=== PATIENT | female | born 1955 | race Caucasian/White ===

== ENCOUNTER 2017-04-26 16:50 | Inpatient (IN) | payer BC, OTHER ==
[~2017-04-26] VITALS: Ht 165.1 cm; Wt 73.9 kg
--- NOTE | ~2017-04-26 | CNG ---
[facility] [place] [address] CYTO-NONGYN REPORT PROCEDURE Name: SHANIA MCKEON Room #: 461-P ADM IN M.R.#: [id number] Admission: 04/26/17 Date of : 55 Discharge: Report #: [id number] Path Case #: [id number] CYTOPATHOLOGY REPORT COLLECTION DATE: 04/27/2017 RECEIVED DATE: 04/29/2017 SUBMITTING PHYS: Dr. Luis Lewis OTHER PHYS: Dr. Jaren Horne CLINICAL HISTORY: SOA, pneumothorax, metastatic colon cancer SPECIMEN(S) RECEIVED: A.Sputum * * * * * * * * * * * * FINAL DIAGNOSIS: A. Sputum: - No malignant cells identified. Pulmonary macrophages along with squamous epithelial cells as well as acute and chronic inflammatory cells present. PATHOLOGIST: Heather Guzmán M.D. REPORT ELECTRONICALLY SIGNED BY: Heather Guzmán M.D. DATE/TIME: 04/30/2017 14:31 * * * * * * * * * * * * GROSS PATHOLOGY: A. Sputum: The specimen is submitted unfixed, labeled "Shania Mckeon". Received by the Cytology Department is one mL of clear fluid. One ThinPrep slide was prepared. (clt 04.29.2017) JUICE MIXER(S): LIBIA Holm[facility] INITIAL CPT CODE(S): A; 28502 Professional services performed by [facility] at [facility] [address], [place] [address] Technical services performed by [facility] at [address] [place] [address]., [address], [place] [address]. [facility] [address] [place] [address], [facility] [address] [place], [place] [address] [place] [address] [place] [address] CYTO-NONGYN REPORT PROCEDURE Name: SHANIA MCKEON Room #: 461-P ADM IN M.R.#: [id number] Admission: 04/26/17 Date of : 55 Discharge: Report #: [id number] Path Case #: [id number] PHONE: [phone] DIRECTOR: David Limon M.D. * * * END OF REPORT * * *
--- NOTE | ~2017-04-26 | HC ---
[facility] [place] [address] CONSULTATION Name: GRETCHEN ROSAS Room #: 461-P ADM IN M.R.#: [id number] Admission: 04/26/17 Attend Phys: Jaren Doshi MD Discharge: Date of : 55 Report #: [id number] THIS REPORT FOR: //name// CC: Phil Meyer DATE OF SERVICE: 04/27/2017 ATTENDING PHYSICIAN: Dr. Jaren Doshi. CONSULTATION REQUESTED BY: Dr. Lewis. REASON FOR CONSULTATION: Antibiotic management, atelectasis lung. HISTORY OF PRESENT ILLNESS: The patient is a 61-year-old white woman who was recently diagnosed to have metastatic colon cancer for which she has received treatment with 5-FU, leucovorin, and oxaliplatin (FOLFOX). The patient did have a colonoscopy and was found to have nonobstructive transverse colon tumor. The liver biopsy revealed metastatic adenocarcinoma. Here of lately, the patient developed some increasing respiratory embarrassment. She was admitted to [facility] and a CT scan of the chest was negative for pulmonary embolism, but she was found to have extensive atelectasis right lower lung. The CT scan is not available for review yet. At present, she is in no distress. No nausea, no vomiting, no diarrhea. She does have a right-sided Port-A-Cath. PAST MEDICAL HISTORY: Recently diagnosed to have metastatic colon cancer and she is yet to have surgery for this, but has received chemotherapy. She had appendectomy secondary to ruptured appendicitis in the past. Right knee replacement in 2011. Benign breast biopsy. SOCIAL HISTORY: . Two children. Thirty years of cigarette smoking. REVIEW OF SYSTEMS: History of abdominal pain and weight loss and some diarrhea. No significant symptomatology as far as that is concerned now, but she appears to be extremely debilitated. DRUG ALLERGIES: None listed. MEDICATIONS: She is on treatment with guaifenesin ER, pantoprazole, Zosyn 3.37 grams IV every 6 hours, Atrovent and albuterol inhalation treatment, acetylcysteine inhalation, Rocephin 1 gram daily, loperamide p.r.n., albuterol inhalation treatment every 4 hours, enoxaparin 40 mg subQ daily, p.r.n. acetaminophen, nitroglycerin, p.r.n. ondansetron. She has received magnesium and potassium supplementation. [address] [address] CONSULTATION Name: GRETCHEN ROSAS Room #: 461-P [facility] IN [facility].#: [id number] Admission: 04/26/17 Attend Phys: Jaren Doshi MD Discharge: Date of : 55 Report #: [id number] PHYSICAL EXAMINATION: GENERAL: This is a chronically ill-appearing woman presenting the following vital signs. VITAL SIGNS: Temperature 98.6, pulse 65, respirations 16, BP 112/76 on admission, currently 80/51, height 5 feet 5 inches, weight 163 pounds. HEENMT: Head normocephalic, atraumatic. Pupils reactive. Conjunctivae pale. Mouth: of the tongue. There is a possible herpetic lesion on the left lower lip. NECK: Supple, no thyromegaly. CHEST: Revealed right-sided Port-A-Cath. LUNGS: Decreased breath sounds at bases. HEART: S1, S2. No gallop or murmur. ABDOMEN: Soft, no masses or megaly. PELVIC AND RECTAL: Deferred. EXTREMITIES: No clubbing, cyanosis. NEUROLOGIC: Grossly within normal limits. LABORATORY DATA: Sodium 135, potassium on admission 3.3, after potassium replacement this goes up to 3.6, BUN 5, creatinine 0.6. Magnesium 1.4, albumin 1.4 g/dL. Protime 18.6, INR 1.8, aPTT 35.5. WBC 9200, hemoglobin 9.4 g/dL, platelets 186,000. Prealbumin is 6.1 mg/dL. The MRSA screen is pending. There is a fungal serology that is pending. The urinalysis revealed positive nitrite, positive blood. The microscopic exam revealed pyuria, microscopic hematuria and bacteriuria. ABGs revealed pH 7.48, pCO2 of 29, pO2 of 57, bicarbonate 21.3, lactate 3.24. ASSESSMENT: 1. Metastatic colon cancer -- liver metastasis, status post recent chemotherapy. 2. Hypoxemia with metabolic and lactic acidosis. 3. Severe malnutrition. 4. Port-A-Cath. 5. Question herpetic lesion, left lip. 6. Bibasilar pulmonary infiltrates, possible atelectasis. SUGGESTIONS: Recommend while awaiting MRSA screen, we will place the patient on vancomycin. We will try to review CT scan from the referring hospital. We will continue coverage with Zosyn and discontinue Rocephin. Dr. Lewis and Dr. Doshi, thank you for requesting my suggestions in the care of your patient. <ELECTRONICALLY SIGNED> By: Kendall Thomas MD 04/27/17 1133 0800 0857 Kendall Thomas MD /nt
--- NOTE | ~2017-04-26 | CNG ---
[facility] [place] [address] CYTO-NONGYN REPORT PROCEDURE Name: SHANIA MCKEON Room #: 450-P ADM IN M.R.#: [id number] Admission: 04/26/17 Date of : 55 Discharge: Report #: [id number] Path Case #: [id number] CYTOPATHOLOGY REPORT COLLECTION DATE: 04/30/2017 RECEIVED DATE: 04/30/2017 SUBMITTING PHYS: Dr. Luis Lewis OTHER PHYS: Dr. Jaren Doshi CLINICAL HISTORY: Pneumothorax, Metastatic colon cancer. No endobronchial lesions identified during the Procedure. SPECIMEN(S) RECEIVED: A.Bronchoalveolar lavage, NOS B.Bronchial brushings, RML/LLL C.Bronchial brush rinse, NOS * * * * * * * * * * * * FINAL DIAGNOSIS: A. Bronchoalveolar lavage, NOS: - No malignant cells identified. Pulmonary macrophages, bronchial cells, squamous cells and scattered inflammatory cells. B. Lung, RML/ LLL, Bronchial brushings: No malignant cells identified. Reactive bronchial epithelial cells identified along with macrophages and inflammatory cells. C. Lung, Bronchial brush rinse: No malignant cells identified. Reactive bronchial epithelial cells identified along with macrophages and inflammatory cells. COMMENT: Examination shows numerous sheets of reactive ciliated columnar epithelial cells with round nuclear membranes and nuclear crowding. Necrosis, tumor diathesis, mitotic figures and three-dimensional architecture are not identified. Per the procedure report, there is no lesion identified. The cells are favored to be reactive bronchial epithelial cells. History of metastatic colon cancer is noted. [place]: Dr. Nancy Gonzalez. PATHOLOGIST: Heather Guzmán M.D. REPORT ELECTRONICALLY SIGNED BY: Heather Guzmán M.D. DATE/TIME: 05/01/2017 14:11 * * * * * * * * * * * * GROSS PATHOLOGY: A. Bronchoalveolar lavage, NOS: The specimen is submitted unfixed, labeled "Shania Mckeon". Received by the Cytology Department is 10 mL of cloudy fluid. One ThinPrep slide was prepared. B. Bronchial brushings, RML/LLL: The specimen is labeled "[address] [address] CYTO-NONGYN REPORT PROCEDURE Name: SHANIA MCKEON Room #: 450- ADM IN M.R.#: [id number] Admission: 04/26/17 Date of : 55 Discharge: Report #: [id number] Path Case #: [id number] Shania" and consists of two fixed slides. C. Bronchial brush rinse, NOS: The specimen is labeled "Shania Mckeon" and consists of a brush tip in fixative. One ThinPrep slide was prepared. (clt 04.30.2017) SALES REPRESENTATIVE PRINTING(S): LIBIA Cottrell([facility]) INITIAL CPT CODE(S): A; 13984 B; 27263 C; 10275 Professional services performed by [facility] at [address] [place] [address] Technical services performed by [facility] at [address] [place] [address]., [address], [place] [address]. [facility] [address] [place] [address], [address] [place] [address] PHONE: [phone] DIRECTOR: David Limon M.D. * * * END OF REPORT * * *
--- NOTE | ~2017-04-26 | HC ---
[facility] [place] [address] CONSULTATION Name: GRETCHEN ROSAS Room #: 461- ADM IN M.R.#: [id number] Admission: 04/26/17 Attend Phys: Jaren Doshi MD Discharge: Date of : 55 Report #: [id number] THIS REPORT FOR: //name// CC: Phil Doshi DATE OF SERVICE: 04/26/2017 REASON FOR CONSULTATION: Pneumothorax. IMPRESSION: 1. Hypoxic respiratory failure. 2. Tree-in-bud nodules throughout right lung/atelectasis in consolidation. 3. Atelectasis middle lobe and left lower lobe per chart. 4. Metastatic colon carcinoma. 5. Debilitation. 6. Probable chronic obstructive pulmonary disease. 7. History of paroxysmal atrial fibrillation. 8. Anemia, question etiology. PLAN: We will ask ID to see. We will do Zosyn at present. We will send multiple cultures. We will do VEST and IPV in flutter valve, may do a bronchoscopy if unable to clear. We will ask them to send a CT scan, so this can be reviewed. We will follow closely with you. DVT prophylaxis. We will also check venous Dopplers. HISTORY OF PRESENT ILLNESS: A pleasant 61-year-old female transferred from [facility] for possible pneumothorax; however, it appears that she has ____ significant collapse of airways. She was initially admitted 3 months ago per chart for abdominal pain and weight loss and there was found to be a 5 cm colon mass with hepatic mets. Biopsy showed adeno CA. Colonoscopy on February 08 showed near circumferential mass ascending colon, small sessile poly and a second halve circumferential mass transverse colon. She was started on chemotherapy with 5FU, leucovorin, FOLFOX, nausea with this and some diarrhea. CA increased. The patient after a CT scan developed atrial fibrillation and hypokalemia and was admitted to hospital. During her stay, she became more short of breath and increasing O2 requirements and after CT PE protocol was transferred here. She is sleepy at this time, relates quit smoking 3 months ago, feels better since being transferred. PAST MEDICAL HISTORY: ____. PAST SURGICAL HISTORY: Included: 1. Right knee replacement in 2011. 2. Appendectomy. [facility] [address] [place] [address] CONSULTATION Name: GRETCHEN ROSAS Room #: [facility] ADM IN M.R.#: [id number] Admission: 04/26/17 Attend Phys: Jaren Doshi MD Discharge: Date of : 55 Report #: [id number] 3. Breast biopsy. FAMILY HISTORY: Positive for cancer. SOCIAL HISTORY: Positive tobacco, quit smoking 3 months ago. Works at a local [employer] per chart. Negative significant ETOH. REVIEW OF SYSTEMS: As above. PHYSICAL EXAMINATION: VITAL SIGNS: Temperature 97.9, pulse 73, respirations 24, BP 112/76. EYES: Negative icterus. NECK: Negative JVD. Trachea midline. LUNGS: Decreased bilaterally. HEART: Regular. ABDOMEN: Bowel sounds present. Mildly distended. EXTREMITIES: Showed positive edema, no calf tenderness, moved all extremities. LABORATORY DATA: Potassium 3.3, BUN 5, magnesium 1.4, albumin 1.4. INR 1.8. White count 9.3, hemoglobin 8.4, platelets 176. UA showed nitrite positive, bacteria greater than 30. It appears she was on DuoNeb, vancomycin, piperacillin, Lovenox and Protonix there. Stool was essentially negative and ABG on 10 liters showed 7.44, pCO2 30, pO2 57. Her PA pressure was normal, ejection fraction 65%. We will follow closely with you. By: 2311 0022 Luis Lewis MD /nt
--- NOTE | ~2017-04-26 | P ---
[facility] [place] [address] PROCEDURE REPORT Name: GRETCHEN ROSAS Room #: 450-P ADM IN M.R.#: [id number] Admission: 04/26/17 Attend Phys: Jaren Doshi MD Discharge: Date of : 55 Report #: [id number] THIS REPORT FOR: //name// CC: Phil Doshi PROCEDURE: Fiberoptic bronchoscopy. INDICATION: Mucus plugging, atelectasis. FINDINGS: No endobronchial lesions, minimal mucus plugging. MEDICATIONS: Versed 4 and 50 of fentanyl. BLOOD LOSS: None. ____. Pictures were taken. DESCRIPTION OF PROCEDURE: The patient was informed of risks and benefits and consented to the procedure. This includes bleeding and . Procedure was done in landscape laborer. The patient was given 4 mg of Versed, 50 of fentanyl. This was titrated during procedure. The patient tolerated the procedure well. Bronchoscope was placed orally. Vocal cords moved normally. She did a great job protecting her airway. Main elizabeth was sharp. ____ was normal. No significant mucus plugging noted. No endobronchial lesions seen. Wash and brushes were done bilaterally, tolerated well. These will be sent to lab and we will discuss with . By: 0839 1019 Luis Lewis MD /nt
[2017-04-26 20:08] VITALS: BP 112/76
[2017-04-26] MEDS ORDERED: IBUPROFEN 400400 M2 PO (21:21)
[2017-04-26] MEDS ORDERED: ZOFRAN4 MG PO (21:21)
[2017-04-26 21:22] LABS: HEMATOCRIT 25.6 % (37.0-47.0); HEMOGLOBIN 8.4 gm/dL (12.0-15.0); MCH 27.2 pg (26.0-34.0); MCHC 32.9 g/dL (28.0-37.0); MCV 82.7 fL (80.0-100.0); RBC 3.1 mil/uL (4.20-5.00); RDW 24.8 % (10.5-14.5); WBC 9.3 thou/uL (4.0-11.0)
[2017-04-26] MEDS ORDERED: POTASSIUM20 PO (21:22)
[2017-04-26] MEDS ORDERED: COMPAZINE10 MG PO (21:22)
[2017-04-26] MEDS ORDERED: PEPCID20 MG PO (21:23)
[2017-04-26] MEDS ORDERED: TRAZODONE HCL50 MG PO (21:23)
[2017-04-26] MEDS ORDERED: NYSTATIN 1100000 U/M SW&SWALLOW (21:24)
[2017-04-26] MEDS ORDERED: LOPERAMIDE 2 MG2 M1 PO (21:25)
[2017-04-26] MEDS ORDERED: COLACE100 MG PO (21:26)
[2017-04-26 21:32] LABS: URINE BILIRUBIN NEGATIVE (Negative); URINE BLOOD 2+ (Negative); URINE COLOR YELLOW; URINE GLUCOSE-RANDOM* NEGATIVE (Negative); URINE KETONES NEGATIVE (Negative); URINE NITRITE POSITIVE (Negative); URINE PROTEIN (DIPSTICK) TRACE (Negative); URINE UROBILINOGEN 0.2 E.U./dl (0.2-1.0)
[2017-04-26 21:36] LABS: CALCIUM 7.3 mg/dL (8.5-10.1); CREATININE 0.7 mg/dL (0.6-1.0); POTASSIUM 3.3 mmol/L (3.5-5.1)
[2017-04-26 21:38] LABS: APTT 35.5 Seconds (24.5-32.8); INR 1.8; PROTIME 18.6 Seconds (9.3-11.4)
[2017-04-26 21:42] LABS: ALBUMIN 1.4 g/dL (3.4-5.0); TOTAL BILIRUBIN 0.3 mg/dL (<0.1-1.0); TOTAL PROTEIN 4.7 g/dL (6.4-8.2)
[2017-04-26 21:46] LABS: BACTERIA >30 Many /HPF (None Seen); CASTS None Seen /LPF (None Seen); SQUAMOUS None Seen /LPF (0-3); URINE RBC 3-10 Few /HPF (0-2); URINE WBC >25 Many /HPF (0-5)
[2017-04-26 21:47] LABS: CRYSTALS None Seen /LPF (None Seen)
[2017-04-26 23:51] VITALS: BP 100/65
[2017-04-26 23:51] LABS: ABG SAMPLE TYPE ARTERIAL; BE(vivo) -1.4 mmol/L (-2 to +3); HCO3 21.3 mmol/L (22.0-26.0); LACTATE 3.24 mmol/L (0.5-2.0); O2(CT) 12.7 mL/dL (15.0-23.0); O2Hb 90.1 % (92.0-98.0); PCO2 29.1 mmHg (35.0-45.0); PO2 57.6 mmHg (80.0-100.0); STICK SITE R.BRACHIAL; pH 7.483 (7.360-7.450); sO2 92.3 % (92.0-98.0); tCO2 22.2 mmol/L (24.0-30.0)
[2017-04-27 04:57] VITALS: BP 80/52
[2017-04-27 06:44] LABS: HEMATOCRIT 25.8 % (37.0-47.0); HEMOGLOBIN 8.4 gm/dL (12.0-15.0); MCHC 32.7 g/dL (28.0-37.0); MCV 82.6 fL (80.0-100.0); RBC 3.13 mil/uL (4.20-5.00); RDW 24.3 % (10.5-14.5); WBC 9.2 thou/uL (4.0-11.0)
[2017-04-27 06:59] LABS: ALBUMIN 1.3 g/dL (3.4-5.0); CALCIUM 7.4 mg/dL (8.5-10.1); CREATININE 0.6 mg/dL (0.6-1.0); POTASSIUM 3.6 mmol/L (3.5-5.1); TOTAL BILIRUBIN 0.4 mg/dL (<0.1-1.0); TOTAL PROTEIN 4.8 g/dL (6.4-8.2)
[2017-04-27 07:35] VITALS: BP 80/51
[2017-04-27 11:50] VITALS: BP 89/62
[2017-04-27 16:16] VITALS: BP 104/70
[2017-04-27 20:43] VITALS: BP 90/62
[2017-04-28 04:41] VITALS: BP 86/52
[2017-04-28 06:39] LABS: HEMATOCRIT 23.2 % (37.0-47.0); HEMOGLOBIN 7.6 gm/dL (12.0-15.0); MCH 26.9 pg (26.0-34.0); MCHC 32.6 g/dL (28.0-37.0); MCV 82.5 fL (80.0-100.0); RBC 2.82 mil/uL (4.20-5.00); RDW 24.2 % (10.5-14.5); WBC 11.1 thou/uL (4.0-11.0)
[2017-04-28 07:02] LABS: ALBUMIN 1.3 g/dL (3.4-5.0); CALCIUM 7.1 mg/dL (8.5-10.1); CREATININE 0.6 mg/dL (0.6-1.0); POTASSIUM 3.1 mmol/L (3.5-5.1); TOTAL BILIRUBIN 0.4 mg/dL (<0.1-1.0); TOTAL PROTEIN 4.5 g/dL (6.4-8.2)
[2017-04-28 08:06] VITALS: BP 83/55
[2017-04-28 11:20] VITALS: BP 96/68
[2017-04-28 15:40] VITALS: BP 108/74
[2017-04-28 20:30] VITALS: BP 105/72
[2017-04-29 05:01] VITALS: BP 89/62
[2017-04-29 07:26] LABS: HEMOGLOBIN 7.4 gm/dL (12.0-15.0); MCH 26.8 pg (26.0-34.0); MCHC 32.1 g/dL (28.0-37.0); MCV 83.4 fL (80.0-100.0); RBC 2.76 mil/uL (4.20-5.00); RDW 24.1 % (10.5-14.5); WBC 10.6 thou/uL (4.0-11.0)
[2017-04-29 07:38] VITALS: BP 98/65
[2017-04-29 07:41] LABS: ALBUMIN 1.3 g/dL (3.4-5.0); CALCIUM 7.2 mg/dL (8.5-10.1); CREATININE 0.6 mg/dL (0.6-1.0); PHOSPHORUS 2.5 mg/dL (2.5-4.9); POTASSIUM 3.2 mmol/L (3.5-5.1)
[2017-04-29 12:08] VITALS: BP 98/60
[2017-04-29 16:04] VITALS: BP 106/70
[2017-04-29 19:17] VITALS: BP 96/66
[2017-04-30 04:07] VITALS: BP 107/70
[2017-04-30 04:33] LABS: HEMATOCRIT 22.8 % (37.0-47.0); HEMOGLOBIN 7.4 gm/dL (12.0-15.0); MCH 27.3 pg (26.0-34.0); MCHC 32.5 g/dL (28.0-37.0); MCV 83.9 fL (80.0-100.0); RBC 2.72 mil/uL (4.20-5.00); RDW 24.4 % (10.5-14.5); WBC 12.6 thou/uL (4.0-11.0)
[2017-04-30 04:48] LABS: CALCIUM 7.8 mg/dL (8.5-10.1); CREATININE 0.6 mg/dL (0.6-1.0); POTASSIUM 3.8 mmol/L (3.5-5.1)
[2017-04-30 15:11] VITALS: BP 99/67
[2017-04-30 19:12] LABS: BLASTOMYCES-IMMUNODIFF Negative (Neg:<1:1); HISTOPLASMA-IMMUNODIFF Negative (Neg:<1:1)
[2017-04-30 19:14] VITALS: BP 100/71
[2017-05-01 04:34] VITALS: BP 99/68
[2017-05-01 07:20] VITALS: BP 106/69
[2017-05-01 08:16] LABS: % SATURATION 36 % (20-39); IRON 23 ug/dL (50-170); TIBC 64 ug/dL (250-450); UIBC 41 ug/dL
[2017-05-01 12:23] VITALS: BP 97/62
[2017-05-01] MEDS ORDERED: LOPERAMIDE 2 MG2 M1 PO (12:29)
[2017-05-01] MEDS ORDERED: FAMCICLOVIR250 MG PO (12:29)
[2017-05-01] MEDS ORDERED: POTASSIUM20 PO (12:30)
[2017-05-01] MEDS ORDERED: AUGMENTIN 875875 MG PO (12:38)
[2017-05-01 12:50] VITALS: BP 97/62
[2017-05-01 19:08] LABS: ASPERGILLUS FLAVUS-ID Negative (Neg:<1:1); ASPERGILLUS FUMIGATUS-ID Negative (Neg:<1:1); ASPERGILLUS NIGER-ID Negative (Neg:<1:1)
== END 2017-05-01 14:14 | disposition home or self-care (01) | DRG 166 ==
LOC: 4W 16:50
PROVIDERS: Hospitalist; Internal Medicine Hematology & Oncology; Internal Medicine Pulmonary Disease; Nurse Practitioner Family
PROC: 0B9F8ZX Drainage of Right Lower Lung Lobe, Via Natural or Artificial Opening Endoscopic, Diagnostic (ICD-10-PCS; principal; 2017-04-26)
PROC: 0BBF8ZX Excision of Right Lower Lung Lobe, Via Natural or Artificial Opening Endoscopic, Diagnostic (ICD-10-PCS; principal; 2017-04-26)
DX: J96.01 Acute respiratory failure with hypoxia (principal); E43 Unspecified severe protein-calorie malnutrition; J18.9 Pneumonia, unspecified organism; C18.9 Malignant neoplasm of colon, unspecified; C78.7 Secondary malignant neoplasm of liver and intrahepatic bile duct; E87.2 Acidosis; N39.0 Urinary tract infection, site not specified; E87.6 Hypokalemia; R19.7 Diarrhea, unspecified; I48.0 Paroxysmal atrial fibrillation; D64.81 Anemia due to antineoplastic chemotherapy; F17.210 Nicotine dependence, cigarettes, uncomplicated; F32.9 Major depressive disorder, single episode, unspecified; Z96.651 Presence of right artificial knee joint; B00.1 Herpesviral vesicular dermatitis; Z79.01 Long term (current) use of anticoagulants; Z68.27 Body mass index [BMI] 27.0-27.9, adult; Z79.899 Other long term (current) drug therapy; Z82.49 Family history of ischemic heart disease and other diseases of the circulatory system; Z83.3 Family history of diabetes mellitus; Z90.49 Acquired absence of other specified parts of digestive tract
CPT/HCPCS: 10045

== ENCOUNTER 2017-07-02 12:12 | Inpatient (IN) | payer BC, OTHER ==
[~2017-07-02] VITALS: Ht 165.1 cm; Wt 66.7 kg
--- NOTE | ~2017-07-02 | EKG ---
[address] [place] [address] ELECTROCARDIOGRAM REPORT Name: GRETCHEN ROSAS Room #: 356-P ADM IN M.R.#: [id number] Admission: 07/02/17 Attend Phys: Jaren Doshi MD Discharge: Date of : 55 Report #: [id number] THIS REPORT FOR: //name// [facility] Test Date: 2017-07-04 Test Time: 22:28:52 Pat Name: GRETCHEN ROSAS Department: Room: 356 Gender: F Research Laboratory Manager: [email or web address] : 1955 Requested By: Francisca Miller Order Number: [id number] MD: Archie Campos Measurements Intervals [place] Rate: 144 P: NC: QRS: 23 QRSD: 91 T: 209 QT: 265 QTc: 410 Interpretive Statements Atrial fibrillation Ventricular premature complex Repol abnrm suggests ischemia, diffuse leads Compared to ECG 07/02/2017 12:30:31 Ventricular premature complex(es) now present Atrial fibrillation has replaced sinus rhythm ST and T wave abnormality is now present Electronically Signed On 07-05-2017 10:12:12 CDT by Archie Campos [email or web address] <ELECTRONICALLY SIGNED> By: Archie Campos MD, FAC 07/05/17 1012 Archie Campos MD, [facility] /EPI
--- NOTE | ~2017-07-02 | EKG ---
[address] [address] ELECTROCARDIOGRAM REPORT Name: GRETCHEN ROSAS Room #: 356-P ADM IN M.R.#: [id number] Admission: 07/02/17 Attend Phys: Jaren Doshi MD Discharge: Date of : 55 Report #: [id number] THIS REPORT FOR: //name// [facility] Test Date: 2017-07-02 Test Time: 12:30:31 Pat Name: GRETCHEN ROSAS Department: Room: 356 Gender: F Autocad: SANYA : 1955 Requested By: Alfonso Cheatham Order Number: [id number] MD: Rubén Thomas Measurements Intervals [place] Rate: 73 P: 76 OR: 149 QRS: 49 QRSD: 93 T: 29 QT: 383 QTc: 422 Interpretive Statements Sinus rhythm Borderline T wave abnormalities No previous ECG available for comparison Electronically Signed On 07-02-2017 23:07:48 CDT by Rubén Thomas [email or web address] <ELECTRONICALLY SIGNED> By: Rubén Thomas MD 07/02/17 2307 1230 1230 Rubén Thomas MD /SYLVIE
--- NOTE | ~2017-07-02 | EKG ---
[address] [address] ELECTROCARDIOGRAM REPORT Name: GRETCHEN ROSAS Room #: 356- ADM IN M.R.#: [id number] Admission: 07/02/17 Attend Phys: Jaren Doshi MD Discharge: Date of : 55 Report #: [id number] THIS REPORT FOR: //name// [facility] Test Date: 2017-07-05 Test Time: 17:49:34 Pat Name: GRETCHEN ROSAS Department: Room: 356 Gender: F Dehydrogenation Converter Helper: Fortino ANTONIO : 1955 Requested By: Alexandra Payne Order Number: [id number] MD: Rubén Thomas Measurements Intervals [place] Rate: 77 P: 54 VA: 154 QRS: 39 QRSD: 103 T: 62 QT: 447 QTc: 506 Interpretive Statements Sinus rhythm Minimal ST depression, anterolateral leads Prolonged QT interval Compared to ECG 07/04/2017 22:28:52 ST (T wave) deviation now present Prolonged QT interval now present Atrial fibrillation no longer present Ventricular premature complex(es) no longer present Early repolarization no longer present Possible ischemia no longer present Electronically Signed On 07-05-2017 21:52:57 CDT by Rubén Thomas [email or web address] <ELECTRONICALLY SIGNED> By: Rubén Thomas MD 07/05/17 2152 48 48 Rubén Thomas MD /EPI
--- NOTE | ~2017-07-02 | 2DMMODE ---
[facility] [address] [place] [address] 2 D/M-MODE ECHOCARDIOGRAM Name: GRETCHEN ROSAS Room #: 356-P ADM IN ..#: [id number] Admission: 07/02/17 Attend Phys: Jaren Doshi MD Discharge: Date of : 55 Date of Service: 07/03/17 1022 Report #: [id number] THIS REPORT FOR: //name// APPROVED REPORT Study performed: 07/03/2017 08:06:39 EXAM: Comprehensive 2D, Doppler, and color-flow Echocardiogram Patient Location: Echo lab Room #: [facility] Status: routine BSA: 1.74 HR: 97 bpm BP: 114/69 mmHg Other Information Study Quality: AdequateGood Indications Atrial Fibrillation 2D Dimensions RVDd: 21.17 mm LVEF(%): 59.60 (>50%) IVSd: 9.40 (7-11mm) LVOT Diam: 21.05 (18-24mm) LVDd: 46.19 mm PWd: 9.03 (7-11mm) Ascending Ao: 31.62 (22-36mm) LVDs: 31.59 (25-40mm) Aortic Root: 33.34 mm Gonsalez's LVEF: 59.60 % Volumes Left Atrial Volume (Systole) Single Plane 4CH: 26.60 mL Single Plane 2CH: 56.54 mL LA ESV Index: 27.00 mL/m2 Aortic Valve AoV Peak Francisco.: 1.22 m/s AO Peak Gr.: 5.95 mmHg LVOT Max P.51 mmHg LVOT Max V: 0.94 m/s RICO Vmax: 2.67 cm2 Mitral Valve E/A Ratio: 0.7 MV Decel. Time: 229.69 ms MV E Max Francisco.: 0.40 m/s [facility] [address] [place] [address] 2 D/M-MODE [facility]ARDIOGRAM [facility] #: [facility]-P ADM IN M.R.#: [id number] Admission: 07/02/17 Attend Phys: Jaren Doshi MD Discharge: Date of : 55 Date of Service: 07/03/17 1022 Report #: [id number] MV A Francisco.: 0.58 m/s MV PHT: 66.61 ms IVRT: 76.12 ms Pulmonary Valve PV Peak Francisco.: 1.11 m/s PV Peak Gr.: 4.94 mmHg Tricuspid Valve TR Peak Francisco.: 2.82 m/s TR Peak Gr.: 31.87 mmHg PA Pressure: 37.00 mmHg Left Ventricle The left ventricle is normal size. There is normal left ventricular wall thickness. The left ventricular systolic function is normal. LVEF is 55-60%. Grade I - abnormal relaxation pattern. Right Ventricle The right ventricle is normal size. The right ventricular systolic function is normal. Atria The left atrium size is normal. The right atrium size is normal. Aortic Valve The aortic valve is normal in structure. No aortic regurgitation is present. There is no aortic valvular stenosis. Mitral Valve Mild mitral annular calcification. Trace mitral regurgitation. No evidence of mitral valve stenosis. Tricuspid Valve The tricuspid valve is normal in structure. Trace to mild tricuspid regurgitation. Pulmonic Valve The pulmonary valve is normal in structure. Trace pulmonic regurgitation. Great Vessels The aortic root is normal in size. IVC is normal in size and collapses >50% with inspiration. Pericardium [facility] [address] [place] [address] 2 D/M-MODE ECHOCARDIOGRAM Name: GRETCHEN ROSAS Room #: 356-P [facility] IN .R.#: [id number] Admission: 07/02/17 Attend Phys: Jaren Doshi MD Discharge: Date of : 55 Date of Service: 07/03/17 1022 Report #: [id number] There is no pericardial effusion. <Conclusion> The left ventricle is normal size. LVEF is 55-60%. The aortic valve is normal in structure. Mild mitral annular calcification. Trace mitral regurgitation. The tricuspid valve is normal in structure. Trace to mild tricuspid regurgitation. There is no pericardial effusion. <ELECTRONICALLY SIGNED> By: Jerry Rogers MD [id number] 21 21 Jerry Rogers MD /INF
[~2017-07-02 12:12] MED LIST: AUGMENTIN 875875 MG PO; COLACE100 MG PO; COMPAZINE10 MG PO; FAMCICLOVIR250 MG PO; IBUPROFEN 400400 M2 PO; LOPERAMIDE 2 MG2 M1 PO; NYSTATIN 1100000 U/M SW&SWALLOW; PEPCID20 MG PO; POTASSIUM20 PO; TRAZODONE HCL50 MG PO; ZOFRAN4 MG PO
[2017-07-02 12:13] VITALS: BP 121/60
[2017-07-02 12:46] LABS: HEMATOCRIT 27.2 % (37.0-47.0); HEMOGLOBIN 8.6 gm/dL (12.0-15.0); MCH 29.2 pg (26.0-34.0); MCHC 31.8 g/dL (28.0-37.0); MCV 91.9 fL (80.0-100.0); PLATELET COUNT 134 thou/uL (150-400); RBC 2.96 mil/uL (4.20-5.00); RDW 18.6 % (10.5-14.5); WBC 2.2 thou/uL (4.0-11.0)
[2017-07-02 12:48] LABS: MANUAL DIFF YES
[2017-07-02 12:55] LABS: ANION GAP 11 mmol/L (7-16); BUN 11 mg/dL (7-18); CALCIUM 8.5 mg/dL (8.5-10.1); CHLORIDE 97 mmol/L (98-107); CO2 22 mmol/L (21-32); CREATININE 0.8 mg/dL (0.6-1.0); GLUCOSE 140 mg/dL (74-106); POTASSIUM 4.2 mmol/L (3.5-5.1); SODIUM 130 mmol/L (136-145)
[2017-07-02 13:00] LABS: APTT 28.7 Seconds (24.5-32.8); INR 1.6
[2017-07-02 13:03] LABS: TROPONIN-I < 0.04 ng/mL (<0.04-0.07)
[2017-07-02 13:31] LABS: ABSOLUTE NEUTROPHILS 1.3 thou/uL (1.4-8.2); ANISOCYTOSIS 2+; TOTAL CELL COUNT 100
[2017-07-02 13:32] LABS: OVALOCYTES FEW
[2017-07-02 13:53] VITALS: BP 111/73
[2017-07-02 15:18] VITALS: BP 109/79
[2017-07-02 15:52] VITALS: BP 104/61
[2017-07-02 19:33] VITALS: BP 110/70
[2017-07-03 00:05] VITALS: BP 98/74
[2017-07-03 03:56] VITALS: BP 114/69
[2017-07-03 06:45] LABS: HEMATOCRIT 22.5 % (37.0-47.0); HEMOGLOBIN 7.3 gm/dL (12.0-15.0); MCH 29.4 pg (26.0-34.0); MCHC 32.4 g/dL (28.0-37.0); MCV 90.8 fL (80.0-100.0); PLATELET COUNT 112 thou/uL (150-400); RBC 2.47 mil/uL (4.20-5.00); RDW 18.5 % (10.5-14.5)
[2017-07-03 07:01] LABS: MANUAL DIFF YES; WBC 1.7 thou/uL (4.0-11.0)
[2017-07-03 07:03] LABS: ALBUMIN 1.9 g/dL (3.4-5.0); CALCIUM 8.1 mg/dL (8.5-10.1); CREATININE 0.9 mg/dL (0.6-1.0); MAGNESIUM 1.8 mg/dL (1.8-2.4); POTASSIUM 4.2 mmol/L (3.5-5.1); TOTAL BILIRUBIN 0.6 mg/dL (<0.1-1.0); TOTAL PROTEIN 5.4 g/dL (6.4-8.2)
[2017-07-03 09:52] LABS: ABSOLUTE NEUTROPHILS 0.9 thou/uL (1.4-8.2); ANISOCYTOSIS 2+; TOTAL CELL COUNT 50
[2017-07-03 11:41] VITALS: BP 110/66
[2017-07-03 16:19] VITALS: BP 107/79
[2017-07-03 20:00] VITALS: BP 97/65
[2017-07-04] VITALS (8 sets, daily range): BP systolic 90–114; BP diastolic 58–77
[2017-07-04 07:13] LABS: HEMOGLOBIN 7.2 gm/dL (12.0-15.0); MCH 29.8 pg (26.0-34.0); MCHC 32.6 g/dL (28.0-37.0); MCV 91.4 fL (80.0-100.0); RBC 2.41 mil/uL (4.20-5.00); RDW 18.6 % (10.5-14.5); WBC 2.2 thou/uL (4.0-11.0)
[2017-07-04 07:28] LABS: CALCIUM 7.9 mg/dL (8.5-10.1); CREATININE 0.9 mg/dL (0.6-1.0)
[2017-07-04 07:31] LABS: POTASSIUM 3.2 mmol/L (3.5-5.1)
[2017-07-05 04:18] VITALS: BP 90/64
[2017-07-05 07:18] VITALS: BP 86/56
[2017-07-05 08:15] VITALS: BP 88/57
[2017-07-05 11:27] VITALS: BP 99/67
[2017-07-05 15:49] VITALS: BP 94/60
[2017-07-05 19:20] VITALS: BP 108/66
[2017-07-06 04:32] VITALS: BP 106/67
[2017-07-06 04:44] LABS: HEMOGLOBIN 7.3 gm/dL (12.0-15.0); RDW 18.5 % (10.5-14.5)
[2017-07-06 04:46] LABS: HEMATOCRIT 22.1 % (37.0-47.0); MCH 29.8 pg (26.0-34.0); MCHC 33.1 g/dL (28.0-37.0); RBC 2.45 mil/uL (4.20-5.00)
[2017-07-06 04:56] LABS: CALCIUM 7.9 mg/dL (8.5-10.1); CREATININE 0.7 mg/dL (0.6-1.0)
[2017-07-06 04:59] LABS: POTASSIUM 2.5 mmol/L (3.5-5.1)
[2017-07-06 07:15] VITALS: BP 104/74
[2017-07-06] MEDS ORDERED: MS CONTIN15 MG PO (09:21)
[2017-07-06] MEDS ORDERED: MORPHINE SULFAT15 M3 PO (09:21)
[2017-07-06] MEDS ORDERED: PACERONE 200 M200 M1 PO (10:29)
[2017-07-06] MEDS ORDERED: AUGMENTIN 875-1 EACH PO (10:29)
[2017-07-06] MEDS ORDERED: ENOXAPARIN100 MG/11 SUBQ (10:30)
[2017-07-06] MEDS ORDERED: VENTOLIN HFA 1818 GM INH (10:30)
[2017-07-06 11:03] VITALS: BP 104/74
== END 2017-07-06 11:47 | disposition home or self-care (01) | DRG 175 ==
LOC: ER 12:12 → EROBS 13:52 → 3W 13:52
PROVIDERS: Hospitalist; Nurse Practitioner; Physician Assistant
DX: I26.99 Other pulmonary embolism without acute cor pulmonale (principal); I62.03 Nontraumatic chronic subdural hemorrhage; D61.810 Antineoplastic chemotherapy induced pancytopenia; E43 Unspecified severe protein-calorie malnutrition; C18.9 Malignant neoplasm of colon, unspecified; C78.7 Secondary malignant neoplasm of liver and intrahepatic bile duct; R19.7 Diarrhea, unspecified; F32.9 Major depressive disorder, single episode, unspecified; I48.0 Paroxysmal atrial fibrillation; E87.6 Hypokalemia; Z96.651 Presence of right artificial knee joint; Z68.24 Body mass index [BMI] 24.0-24.9, adult; Z90.49 Acquired absence of other specified parts of digestive tract; Z87.891 Personal history of nicotine dependence; Z79.899 Other long term (current) drug therapy; Z83.3 Family history of diabetes mellitus; Z82.49 Family history of ischemic heart disease and other diseases of the circulatory system
CPT/HCPCS: 10779

== ENCOUNTER 2017-09-07 17:13 | Inpatient (IN) | payer BC, OTHER ==
[~2017-09-07] VITALS: Ht 165.1 cm; Wt 62.1 kg
--- NOTE | ~2017-09-07 | HC ---
[facility] [place] [address] CONSULTATION Name: GRETCHEN ROSAS Room #: 406-P [facility] IN M.R.#: [id number] Admission: 09/07/17 Attend Phys: Jose Alaniz DO Discharge: 09/09/17 Date of : 55 Report #: [id number] THIS REPORT FOR: //name// CC: Phil Ozzie Alaniz DATE OF SERVICE: 09/08/2017 REQUESTING PHYSICIAN: Jose Alaniz DO. REASON FOR CONSULTATION: Metastatic colon cancer. HISTORY OF PRESENT ILLNESS: The patient is a 62-year-old woman well known to my partner, . The patient has metastatic colon cancer to liver and lung, receiving regorafenib orally. She called complaining nausea, vomiting, unable to keep anything down for 3 days. She was rushed to, and evaluated in the Emergency Room, continued to have nausea, vomiting, had CT scan done. CT of abdomen and pelvis showed picture of ileus. The patient was admitted to the hospital. Oncology consult is requested. The patient is doing better today. She says she has not had any vomiting. Nausea has resolved. She had 3 bowel movements, feeling much better. She is a very poor historian, has flat affect and does not give me much history. She does not have any fevers, chills, or melena. PAST MEDICAL HISTORY: Significant for metastatic colon cancer, pulmonary embolus, pneumonia. SOCIAL HISTORY: Has supportive who is at bedside. PHYSICAL EXAMINATION: GENERAL: Reveals pale woman, not in acute distress. VITAL SIGNS: Blood pressure 94/55, heart rate is 54, temperature 97.7, respirations 18. HEENT: Does not reveal thrush. HEART: Normal S1, S2. LUNGS: Clear. ABDOMEN: Distended. No guarding, somewhat tender diffusely, but very mild tenderness is noted. Bowel sounds are diminished. MENTAL STATUS: Awake, but has very flat affect. LABORATORY DATA: White count 8.1, hemoglobin 8.7, platelets 313. Sodium 131, potassium 4.0, BUN 3, creatinine 0.7, alkaline phosphatase 183, total bilirubin 0.3. CT of abdomen and pelvis, right lower lobe/right lung base probably showing metastatic disease with extensive hepatic metastatic disease. Fluid within mildly dilated small bowel loops with scattered air fluid level, [facility] [address] [place] [address] CONSULTATION Name: GRETCHEN ROSAS Room #: [facility] IN M.R.#: [id number] Admission: 09/07/17 Attend Phys: Jose Alaniz DO Discharge: 09/09/17 Date of : 55 Report #: [id number] nonspecific, but possibly representing ileus. Nonspecific mural thickening of the proximal ascending colon, small amount of ascites. ASSESSMENT AND PLAN: 1. Nausea and vomiting, resolved after admission. Agree with management. It seems ileus resolving. 2. Metastatic colon cancer. Continue regorafenib. Follow up with when she is discharged from the hospital. I agree with management. The patient can be discharged when it is okay for hospitalist service. Thank you very much for allowing me to participate in care of this patient. <ELECTRONICALLY SIGNED> By: Krissy Joseph MD 09/22/17 1332 1230 0159 Lakeshia Mcrae MD /nt
[~2017-09-07 17:13] MED LIST changes: +AUGMENTIN 875-1 EACH PO; +ENOXAPARIN100 MG/11 SUBQ; +MORPHINE SULFAT15 M3 PO; +MS CONTIN15 MG PO; +PACERONE 200 M200 M1 PO; +VENTOLIN HFA 1818 GM INH
[2017-09-07 17:15] VITALS: BP 104/70
[2017-09-07] MEDS ORDERED: ACYCLOVIR 400400 MG PO (18:09)
[2017-09-07] MEDS ORDERED: DEMADEX20 MG PO (18:10)
[2017-09-07] MEDS ORDERED: STIVARGA40 MG PO (18:10)
[2017-09-07 18:24] LABS: ABSOLUTE NEUTROPHILS 6.2 thou/uL (1.4-8.2); BASOPHILS 1.3 % (0.0-2.0); EOSINOPHILS 2.7 % (0.0-3.0); HEMATOCRIT 26.8 % (37.0-47.0); HEMOGLOBIN 8.7 gm/dL (12.0-15.0); LYMPHOCYTES 9.7 % (24.0-44.0); MCH 27.8 pg (26.0-34.0); MCHC 32.3 g/dL (28.0-37.0); MONOCYTES 10.1 % (1.0-8.0); PLATELET COUNT 313 thou/uL (150-400); POLYS 76.2 % (36.0-66.0); RBC 3.12 mil/uL (4.20-5.00); RDW 19.4 % (10.5-14.5); WBC 8.1 thou/uL (4.0-11.0)
[2017-09-07 18:31] LABS: CALCIUM 8.2 mg/dL (8.5-10.1); CREATININE 0.6 mg/dL (0.6-1.0)
[2017-09-07 18:37] LABS: ALBUMIN 1.5 g/dL (3.4-5.0); TOTAL BILIRUBIN 0.3 mg/dL (<0.1-1.0)
[2017-09-08 04:00] VITALS: BP 95/60
[2017-09-08 08:40] VITALS: BP 94/55
[2017-09-08 16:15] VITALS: BP 98/62
[2017-09-08 22:18] VITALS: BP 104/53
[2017-09-09 03:43] VITALS: BP 117/62
[2017-09-09 10:25] VITALS: BP 117/62
[2017-09-18] MEDS ORDERED: MORPHINE SULFAT30 M2 PO (19:48)
== END 2017-09-09 13:15 | disposition home or self-care (01) | DRG 374 ==
LOC: ER 17:13 → EROBS 21:35 → 4N 22:00
PROVIDERS: Emergency Medicine
DX: C18.9 Malignant neoplasm of colon, unspecified (principal); E43 Unspecified severe protein-calorie malnutrition; K56.7 Ileus, unspecified; C78.7 Secondary malignant neoplasm of liver and intrahepatic bile duct; D64.9 Anemia, unspecified; F32.9 Major depressive disorder, single episode, unspecified; K59.00 Constipation, unspecified; I48.0 Paroxysmal atrial fibrillation; Z86.711 Personal history of pulmonary embolism; Z82.49 Family history of ischemic heart disease and other diseases of the circulatory system; Z83.3 Family history of diabetes mellitus; Z68.22 Body mass index [BMI] 22.0-22.9, adult; Z90.49 Acquired absence of other specified parts of digestive tract; Z87.891 Personal history of nicotine dependence; Z79.899 Other long term (current) drug therapy; Z28.21 Immunization not carried out because of patient refusal
CPT/HCPCS: 10091

== ENCOUNTER 2017-09-13 23:21 | Emergency (ER) | payer BC, OTHER ==
[~2017-09-13] VITALS: Ht 165.1 cm; Wt 62.1 kg
--- NOTE | ~2017-09-13 | EKG ---
[address] [place] [address] ELECTROCARDIOGRAM REPORT Name: GRETCHEN ROSAS Room #: UNRULY Vázquez#: [id number] Admission: 09/13/17 Attend Phys: Discharge: 09/14/17 Date of : 55 Report #: [id number] THIS REPORT FOR: //name// [facility] ED Test Date: 2017-09-14 Test Time: 00:43:32 Pat Name: GRETCHEN ROSAS Department: Room: Gender: F Crew Car Driver: KIRIT : 1955 Requested By: Magalys Rosa Order Number: [id number] MD: Rubén Thomas Measurements Intervals [place] Rate: 73 P: 74 DE: 151 QRS: 49 QRSD: 103 T: 243 QT: 583 QTc: 643 Interpretive Statements Sinus rhythm Low voltage, extremity leads Electronically Signed On 09-14-2017 8:29:52 BUSINESS MANAGEMENT PROFESSOR by Rubén Thomas [email or web address] <ELECTRONICALLY SIGNED> By: Rubén Thomas MD 09/14/17 0829 0043 0043 Rubén Thomas MD /SYLVIE
[~2017-09-13 23:21] MED LIST changes: +ACYCLOVIR 400400 MG PO; +DEMADEX20 MG PO; +STIVARGA40 MG PO
[2017-09-14 00:15] LABS: ABSOLUTE NEUTROPHILS 6.9 thou/uL (1.4-8.2); BASOPHILS 0.9 % (0.0-2.0); EOSINOPHILS 4.7 % (0.0-3.0); HEMOGLOBIN 8.9 gm/dL (12.0-15.0); LYMPHOCYTES 12.9 % (24.0-44.0); MCH 27.2 pg (26.0-34.0); MCHC 31.7 g/dL (28.0-37.0); MONOCYTES 6.4 % (1.0-8.0); PLATELET COUNT 251 thou/uL (150-400); POLYS 75.1 % (36.0-66.0); RBC 3.25 mil/uL (4.20-5.00); RDW 19.3 % (10.5-14.5); WBC 9.2 thou/uL (4.0-11.0)
[2017-09-14 00:17] LABS: CALCIUM 7.8 mg/dL (8.5-10.1); CREATININE 0.7 mg/dL (0.6-1.0); POTASSIUM 3.3 mmol/L (3.5-5.1)
[2017-09-14 00:23] LABS: ALBUMIN 1.7 g/dL (3.4-5.0); DIRECT BILIRUBIN 0.1 mg/dL (<0.1-0.3); TOTAL BILIRUBIN 0.3 mg/dL (<0.1-1.0); TOTAL PROTEIN 7.1 g/dL (6.4-8.2)
[2017-09-14 01:39] LABS: MAGNESIUM 1.5 mg/dL (1.8-2.4); TROPONIN-I < 0.04 ng/mL (<0.06)
[2017-09-14 02:48] LABS: URINE BILIRUBIN NEGATIVE (Negative); URINE BLOOD NEGATIVE (Negative); URINE CLARITY CLEAR; URINE COLOR YELLOW; URINE GLUCOSE-RANDOM* NEGATIVE (Negative); URINE KETONES NEGATIVE (Negative); URINE LEUKOCYTES-REFLEX NEGATIVE (Negative); URINE NITRITE-REFLEX NEGATIVE (Negative); URINE PROTEIN (DIPSTICK) NEGATIVE (Negative); URINE SPECIFIC GRAVITY 1.025 (1.005-1.035); URINE UROBILINOGEN 0.2 E.U./dl (0.2-1.0)
[2017-09-14] MEDS ORDERED: PHENERGAN 25 MG25 M1 PO (03:42)
[2017-09-14] MEDS ORDERED: MAGNESIUM OXID500 M1 PO (03:42)
[2017-09-14 05:00] VITALS: BP 110/74
[2017-09-18] MEDS ORDERED: MORPHINE SULFAT30 M2 PO (19:48)
== END 2017-09-14 05:00 | disposition home or self-care (01) ==
LOC: ER 23:21
PROVIDERS: Emergency Medicine
DX: R11.2 Nausea with vomiting, unspecified (principal); E83.42 Hypomagnesemia; I45.81 Long QT syndrome; K90.49 Malabsorption due to intolerance, not elsewhere classified; F32.9 Major depressive disorder, single episode, unspecified; I48.91 Unspecified atrial fibrillation; Z87.891 Personal history of nicotine dependence

== ENCOUNTER 2017-09-23 13:47 | Inpatient (IN) | payer BC, OTHER ==
[~2017-09-23] VITALS: Ht 165.1 cm; Wt 63.5 kg
--- NOTE | ~2017-09-23 | EKG ---
[address] [address] ELECTROCARDIOGRAM REPORT Name: GRETCHEN ROSAS Room #: 431-P ADM IN M.R.#: [id number] Admission: 09/23/17 Attend Phys: Jaren Doshi MD Discharge: Date of : 55 Report #: [id number] THIS REPORT FOR: //name// [facility] Test Date: 2017-10-01 Test Time: 09:59:54 Pat Name: GRETCHEN ROSAS Department: Room: 431 Gender: F Media Reconciliation Specialist: Gifty LIN : 1955 Requested By: Matt Poole Order Number: [id number] MD: Rubén Thomas Measurements Intervals [place] Rate: 95 P: 56 UT: 143 QRS: 23 QRSD: 60 T: QT: 463 QTc: 582 Interpretive Statements Sinus rhythm Low voltage, extremity leads Nonspecific T abnormalities, lateral leads Prolonged QT interval Compared to ECG 09/14/2017 00:43:32 T-wave abnormality now present Prolonged QT interval now present Electronically Signed On 10-01-2017 12:45:41 ORGAN TUNER by Rubén Thomas [email or web address] <ELECTRONICALLY SIGNED> By: Rubén Thomas MD 10/01/17 1245 0959 0959 Rubén Thomas MD /EPI
--- NOTE | ~2017-09-23 | HC ---
[facility] [place] [place] [address] CONSULTATION Name: GRETCHEN ROSAS Room #: 431- ADM IN M.R.#: [id number] Admission: 09/23/17 Attend Phys: Jaren Doshi MD Discharge: Date of : 55 Report #: [id number] THIS REPORT FOR: //name// CC: Phil Horne Jaren Miller DATE OF SERVICE: 09/27/2017 REFERRING PROVIDER: Jaren Doshi MD REASON FOR CONSULTATION: Hypoxemic respiratory failure. CHIEF COMPLAINT: Shortness of breath. HISTORY OF PRESENT ILLNESS: Our group was asked to see the patient in consultation while hospitalized at [facility], known to our service from a prior admission several months ago with pleural and probable parenchymal lung metastases from advanced stage colon cancer, had pneumonia at that time that improved. The patient is not a great historian. Much of the history is taken from records and discussion with the who is at the bedside. She is a 62-year-old woman with advanced stage colon cancer with multiple metastases and has very limited functionality. 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 She has to be lifted by him into the wheelchair, is not mobile and apparently is considering palliative care. She presented to the Emergency Department on the of this month with complaints of increasing shortness of breath and cough. No fevers, chills or sweats. Chest x-ray suggested a left lower lobe infiltrate. She has been on Levaquin and aerosol treatments, but has had escalating oxygen requirements. There is a prior history of pulmonary emboli. The patient has noted some increasing lower extremity edema as well as some weeping from her lower extremities due to malnourishment and lower extremity edema. These areas are under evaluation by the wound care service at this time. The patient has been on 100 mg daily of Lovenox. Note she has had some central chest discomfort at this time. Has known significant liver metastases do also provide some significant discomfort. ALLERGIES: THE PATIENT REPORTS IV CONTRAST ALLERGY. PAST MEDICAL HISTORY: 1. Colon cancer with extensive liver, possible peritoneal and pleural metastases. 2. History of malnourishment due to the above. 3. Prior history of venous thromboembolism. 4. Paroxysmal atrial fibrillation. [address] [address] CONSULTATION Name: GRETCHEN ROSAS Room #: 431-P [facility] IN M.R.#: [id number] Admission: 09/23/17 Attend Phys: Jaren Doshi MD Discharge: Date of : 55 Report #: [id number] 5. History of right knee arthroplasty. 6. General depression. OUTPATIENT MEDICATIONS: Include Imodium, potassium chloride, morphine, amiodarone, enoxaparin, albuterol inhaler and promethazine. SOCIAL HISTORY: The patient is an ex-smoker. No significant alcohol consumption. Lives with her . FAMILY HISTORY: Significant for diabetes mellitus and coronary disease. REVIEW OF SYSTEMS: CONSTITUTIONAL: Denies any fevers or chills. ENT: No upper respiratory congestion or epistaxis. CARDIOVASCULAR: Chest pain as described in the HPI. GASTROINTESTINAL: Some diminished appetite, ongoing weight loss and increasing abdominal girth. Some intermittent upper epigastric right upper quadrant pain. RESPIRATORY: As described in the HPI. MUSCULOSKELETAL: Generalized lower extremity weakness, unable to stand or ambulate. NEUROLOGIC: Unclear deficits other than the lower extremity weakness. PHYSICAL EXAMINATION: VITAL SIGNS: Afebrile, pulse 80s, respiratory rate 16, blood pressure 93/64 and oxygen saturation 95% on 10 liters. GENERAL: This is a very debilitated appearing, middle-aged woman, appears comfortable and in no distress. Limited mentation. ENT: Clear oropharynx. No scleral icterus, but pale conjunctivae. LUNGS: With coarse bilateral inspiratory and expiratory rhonchi noted. CARDIOVASCULAR: Heart was regular. I cannot appreciate murmurs. ABDOMEN: Distended, significant hepatomegaly noted several centimeters below the costal margin with right upper quadrant tenderness and palpable masses on the liver. Diminished bowel sounds. Cannot appreciate a fluid wave. EXTREMITIES: Revealed 2+ lower extremity edema with rapid pit recovery time with some abrasions noted on the lower extremities, right greater than left upper extremity edema also noted. LABORATORY DATA: White blood cell count 8000, hemoglobin 8, hematocrit 24, platelet count 86. Sodium 138, potassium 3.8, chloride 107, bicarbonate 28, BUN 6, creatinine 0.5, glucose 74, calcium 6.7, albumin was 1.7 and total protein 7. Chest x-ray reveals bibasilar infiltrates and small effusions. IMPRESSION: 1. Pneumonia. Given recent hospitalization, healthcare-associated pneumonia should be considered. 2. Worsening hypoxemic respiratory failure. Hypoxemia is out of proportion of [facility] [address] [place] [address] CONSULTATION Name: ALISONGRETCHEN Room #: 431-P ADM IN M.R.#: [id number] Admission: 09/23/17 Attend Phys: Jaren Doshi MD Discharge: Date of : 55 Report #: [id number] radiographic findings. The patient may be either not responding to or failing enoxaparin or the enoxaparin dose may be to too low, it is 100 mg daily. It is not typical for her current weight and would escalate to 1 mg/kg twice daily and check lower extremity Dopplers and echocardiogram. Given the patient's prior reported ALLERGY TO CONTRAST, we will not do an IV contrasted study. 3. Metastatic colon cancer. SUGGESTIONS: 1. As above. 2. Add IPV and flutter valve to assist with airway clearance. 3. We are adding Mucinex. 4. Broaden antimicrobial coverage to cover healthcare-associated organisms. 5. Nasal swab for respiratory viral panel and influenza screen. 6. Sputum cultures. 7. Discussed at length with the patient and my recommendation not to intubate the patient. They are considering avoidance of life-sustaining care if needed, but would not commit to no intubation at this time. I think the patient is at an end of life apparently from her advanced stage cancer, certainly is unable to ambulate and certainly unable to adequately clear secretions from her airway and cough effectively. We will follow with you. Thank you for requesting our suggestions. <ELECTRONICALLY SIGNED> By: Lex Holm MD 10/02/17 1823 1506 0449 Lex Holm MD /nt
--- NOTE | ~2017-09-23 | 2DMMODE ---
[facility] [address] [place] [address] 2 D/M-MODE ECHOCARDIOGRAM Name: GRETCHEN ROSAS Room #: 431-P ADM IN M.R.#: [id number] Admission: 09/23/17 Attend Phys: Jaren Doshi MD Discharge: Date of : 55 Date of Service: 09/30/17 1009 Report #: [id number] THIS REPORT FOR: //name// APPROVED REPORT Study performed: 09/30/2017 08:20:04 EXAM: Limited 2D, Doppler, and color-flow Echocardiogram Patient Location: Bedside Room #: 431 Status: routine BSA: 1.70 HR: 82 bpm BP: 89/55 mmHg Rhythm: NSR Other Information Study Quality: Adequate Indications History of pulmonary embolism. Evaluate for PHTN and RV function. Hx: Afib. 2D Dimensions RVDd: 28.48 mm Aortic Valve AoV Peak Francisco.: 1.48 m/s AO Peak Gr.: 8.77 mmHg Tricuspid Valve TR Peak Francisco.: 3.20 m/s RAP Estimate: 5.00 mmHg TR Peak Gr.: 41.00 mmHg PA Pressure: 46.00 mmHg Left Ventricle The left ventricle is normal size. There is normal LV segmental wall motion. There is normal left ventricular wall thickness. Left ventricular systolic function is normal. LVEF is 55%. Right Ventricle The right ventricle is normal size. The right ventricular systolic function is low normal. Atria The left atrium size is normal. The right atrium size is [facility] [address] [place] [address] 2 D/M-MODE ECHOCARDIOGRAM Name: GRETCHEN ROSAS Room #: 431-P [facility] IN .R.#: [id number] Admission: 09/23/17 Attend Phys: Jaren Doshi MD Discharge: Date of : 55 Date of Service: 09/30/17 1009 Report #: [id number] normal. Aortic Valve The aortic valve is normal in structure. No aortic regurgitation is present. There is no aortic valvular stenosis. Mitral Valve The mitral valve is normal in structure. Trace mitral regurgitation. Tricuspid Valve The tricuspid valve is normal in structure. Mild tricuspid regurgitation. Moderate pulmonary hypertension with an estiamted PAP of 45-50mmHg. Pulmonic Valve Pulmonic valve is not well visualized. Great Vessels IVC is normal in size and collapses >50% with inspiration. Pericardium There is no pericardial effusion. <Conclusion> Left ventricular systolic function is normal. There is normal LV segmental wall motion. LVEF is 55%. The aortic valve is normal in structure. No aortic valvular stenosis or insufficiency. The mitral valve is normal in structure. Trace mitral regurgitation. Estimated pulmonary artery pressure of 45-50mmHg. There is no pericardial effusion. <ELECTRONICALLY SIGNED> By: Archie Campos MD, [facility] 09/30/17 1009 1009 1009 Archie Campos MD, [facility] /INF
--- NOTE | ~2017-09-23 | HC ---
[facility] [place] [address] [place] [address] CONSULTATION Name: GRETCHEN ROSAS Room #: 431-P ADM IN M.R.#: [id number] Admission: 09/23/17 Attend Phys: Jaren Doshi MD Discharge: Date of : 55 Report #: [id number] THIS REPORT FOR: //name// CC: Phil Doshi MD REQUESTING PHYSICIAN: Jaren Doshi MD CHIEF COMPLAINT: Metastatic colon cancer. HISTORY OF PRESENT ILLNESS: The patient is a 62-year-old female who presented initially to [facility] on 09/23/2017, with dyspnea. She is O2 dependent at home with chronic hypoxic respiratory failure, 4 liters previously, but then started to run a fever. Per her , she had recently stopped chemotherapy. She was found to have pneumonia and had pneumonia as well 4 months prior to now. Unfortunately, she has had a significantly sorted history with regards to after her diagnosis, which was initially 01/18/2017. She also had a pulmonary embolism in June 2017. She additionally has had a history of pneumothorax and chronic subdural hematoma. She also has had liver and lung metastases of her adenocarcinoma and recently a visit with , her family was informed that additional chemotherapy was not likely to be significantly beneficial prompting a discussion of palliative or hospice care. The patient at this current point in time denies significant pain, reports some edema, reports that her most concerning symptom is that she can no longer ambulate herself. PAST MEDICAL HISTORY: Colon adenocarcinoma diagnosed on 01/18/2017, with liver and lung mets. She also has a history of pulmonary embolism in June 2017, paroxysmal atrial fibrillation, pneumothorax, chronic subdural hematoma. PAST SURGICAL HISTORY: Right TKA, appendectomy, breast biopsy, colonoscopy was performed in February 2017. She also has a port in place, which is currently accessed. MEDICATIONS: Previously on Imodium, potassium chloride, morphine sulfate 15 mg b.i.d. extended release, 15 mg instant release q.4 hours p.r.n., amiodarone 400 mg b.i.d., Lovenox 100 mg subq daily, Ventolin, Mag-Ox, Phenergan, and acyclovir 400 mg b.i.d. ALLERGIES: No known drug allergies. FAMILY HISTORY: Noncontributory. SOCIAL HISTORY: Currently lives in [place], [place] with her Lucho, they had had discussion of palliative or hospice care previously. [facility] [address] [place] [address] CONSULTATION Name: GRETCHEN ROSAS Room #: 431-P [facility] IN [facility].#: [id number] Admission: 09/23/17 Attend Phys: Jaren Doshi MD Discharge: Date of : 55 Report #: [id number] REVIEW OF SYSTEMS: GENERAL: Again, does report a weight loss. Does report generalized malaise. No current fever. CARDIOVASCULAR: Denies chest pain, palpitations, or edema. LUNGS: She does report some shortness of breath and some cough, but no wheezing. ABDOMEN: Denies significant nausea, though she does have some dysphagia at this point in time and is no longer having a large appetite. EXTREMITIES: Does report generalized weakness. PHYSICAL EXAMINATION: VITAL SIGNS: Temperature 36.6, pulse 88, respirations 20, blood pressure 90/57, and 92% on nasal cannula. GENERAL: The patient has a poor attention level at this point in time, intermittently falling asleep during my interview, she is able to respond to my questions, she is in no acute distress at this point in time. CARDIOVASCULAR: Regular rate and rhythm without murmur currently. LUNGS: Diffuse minor rales noted throughout the lung barber. ABDOMEN: Soft, nontender to palpation. Diminished bowel sounds noted. EXTREMITIES: Diffuse weakness noted. INTEGUMENTARY: Does have some desquamation superficially of her hands bilaterally. LABS: Include hemoglobin 7.5. Blood cultures times 2 have been negative to date. Creatinine 0.7 and calcium 6.8. ASSESSMENT AND PLAN: 1. Metastatic colon adenocarcinoma. I discussed extensively with both patient and , spent approximately 50 minutes on advanced planning today, which was a voluntary discussion with both. We discussed the possibility of proceeding with hospice versus palliative care. I explained the difference between these two. They appeared to be amenable to discussing currently with the hospice provider and going with hospice at this point in time. I did discuss code status as well, discussed extensively both CPR and ventilator, it appears that they would be leaning away from doing either, but have not made a decision at this point yet. She did appear to have capacity for decision making as she is able to express the things I explained to her the risks and benefits of both procedures. 2. Acute on chronic respiratory failure, hypoxic type, management per pulmonology and per primary team, contributing to overall diagnosis. 3. Anemia, [id number] at this time. She is having dyspnea most likely due to above problem, but in addition, this is contributing to her overall prognosis. 4. Pulmonary embolism, management per primary team. I will continue her current dosing of Lovenox given her cancer diagnosis. 5. Delirium. I do feel the patient has mild hypoactive delirium, it at this [facility] [address] [place] [address] CONSULTATION Name: GRETCHEN ROSAS Room #: 431-P ADM IN M.Javid.#: [id number] Admission: 09/23/17 Attend Phys: Jaren Doshi MD Discharge: Date of : 55 Report #: [id number] point in time did not affect her capacity for decisions with regards to her advanced directives, but may affect other decisions. 6. I will continue to follow with the patient and family, although it appears that they will make a decision today with regards to things I have discussed. Thank you very much for the consultation. <ELECTRONICALLY SIGNED> By: Rodney Hathaway DO 10/02/17 1223 1659 0907 Rodney Hathaway DO /nt
--- NOTE | ~2017-09-23 | HC ---
[facility] [place] [address] [place] [address] CONSULTATION Name: GRETCHEN ROSAS Room #: 431-P [facility] IN ..#: [id number] Admission: 09/23/17 Attend Phys: Jaren Doshi MD Discharge: Date of : 55 Report #: [id number] THIS REPORT FOR: //name// CC: Phil Doshi DATE OF SERVICE: 09/24/2017 WOUND CARE CONSULTATION NOTE REASON FOR CONSULTATION: Sacral pressure sore and skin wounds of bilateral lower extremities. HISTORY OF PRESENT ILLNESS: The patient is an unfortunate 62-year-old woman with known metastatic colon cancer to the liver and lung. When her primary tumor in the colon was discovered, she already had a large liver metastases and no colon resection was done. The patient has been receiving systemic chemotherapy. The patient recently suffered a pulmonary embolism. The patient has abdominal distention, poor food tolerance and severe protein calorie malnutrition with albumin of 1.7. The patient has had prolonged nausea and vomiting along with poor p.o. intake. She was admitted to the hospital with cough and weakness. Wound care team is consulted due to the finding of a significant sacral pressure sore and opened crusted skin wounds of the lower extremities, possibly related to chemotherapy. PAST MEDICAL HISTORY: 1. Metastatic stage 4 colon cancer with lung and liver metastases. 2. History of pulmonary embolism. 3. Severe protein calorie malnutrition with albumin 1.7. 4. Prolonged nausea and vomiting. 5. History of pancytopenia due to cancer history. 6. Chronic anemia. ALLERGIES: No known drug allergies. MEDICATIONS: Include Imodium, potassium, MS Contin, Pacerone, Lovenox, Ventolin, Phenergan, ibuprofen, Zofran, Compazine, Desyrel, Colace, Zovirax, Demadex. PAST SURGICAL HISTORY: Right knee replacement, appendectomy, colonoscopy, chemotherapy port. REVIEW OF SYSTEMS: Cough and weakness. PHYSICAL EXAMINATION: Shows a chronically ill-appearing, but conscious, weak 62-year-old woman. Mucous membranes are moist. She is nonjaundiced. Neck is [address] [address] CONSULTATION Name: ALISONGRETCHEN Room #: 431- ADM IN M.R.#: [id number] Admission: 09/23/17 Attend Phys: Jaren Doshi MD Discharge: Date of : 55 Report #: [id number] supple. Respirations are unlabored. Abdomen is distended, somewhat firm. Examination of the patient's back shows a complex stellate shaped and unstageable sacral pressure sore. Central portion of this has dark black discolored skin while the lateral aspects showed that necrotic tissue has sloughed and there is underlying viable dermis. Wound is unstageable, but does not appear to be deep. There is no evidence of local sepsis. Examination of the lower extremities shows macerated skin of her lower legs, ankles and dorsal feet with desquamation and crusted exudate. This appears to be possible desquamation secondary to chemotherapy. IMPRESSION: 1. Metastatic stage 4 colon cancer with liver and lung metastases. 2. History of pulmonary embolism. 3. Severe protein-calorie malnutrition, albumin 1.7. 4. Debility. 5. Food intolerance. 6. Sacral unstageable pressure sore with clinical superficial necrosis without sepsis. 7. Desquamating open wounds of the right and left dorsal lower leg, ankle and feet, likely secondary to chemotherapy. PLAN: We will offload the sacral pressure sore with low air loss mattress and placed a foam border over the wound. For the open wounds of the lower legs, we will apply ammonium lactate and petroleum-based barrier cream. We will closely observe the sacral unstageable pressure sore for any need of debridement, it does not appear to be deep. Wound care team will follow. <ELECTRONICALLY SIGNED> By: Aiden Hale MD 09/28/17 1018 1825 06 Aiden Hale MD /nt
--- NOTE | ~2017-09-23 | P ---
[facility] [place] [place] [address] PROCEDURE REPORT Name: GRETCHEN ROSAS Room #: 431-P [facility] IN M.R.#: [id number] Admission: 09/23/17 Attend Phys: Jaren Doshi MD Discharge: Date of : 55 Report #: [id number] THIS REPORT FOR: //name// CC: Phil Doshi DATE OF SERVICE: 09/30/2017 PROCEDURE: Fiberoptic bronchoscopy with bronchoalveolar washings and clearance of mucus plugging. INDICATION: Persistent airway clearance problems and mucus plugging despite airway clearance measures for pneumonia. PROCEDURE NOTATION: After discussing risks, benefits of planned procedure with the patient and , they desired to proceed. After obtaining informed consent, she was brought to Backing In Machine Tender 3. She required high flow oxygen prior to procedure as well as at the end of procedure. The patient received 4% lidocaine nebulized to anesthetize the upper respiratory tract. Once accomplished, she received conscious sedation. Total only 1 mg of Versed was required to provide adequate sedation. Bronchoscope was then passed through an oral bite block and through an Oxymizer mask until the vocal cords were visualized. Lidocaine 1% was instilled in the vocal cords for topical anesthesia. Bronchoscope was then passed in the trachea where thick white secretions were noted throughout the trachea. These were aspirated and 1% lidocaine was instilled in the tracheobronchial tree bilaterally for topical anesthesia. The airways were then surveyed. FINDINGS: Mainstem, lobar, segmental and subsegmental bronchi were explored. No anatomic variation or significant disease is noted. There were significant thick white secretions predominantly in the right lower lobe. This was purged and aspirated with intermittent 20 mL aliquots of saline. The airways were patent and clear at the end of procedure. The patient did have some hypoxemia post-procedure that did require some escalation of high flow oxygen and aerosol treatment with DuoNeb at the end of procedure. No other intervention required at the time of this dictation. <ELECTRONICALLY SIGNED> By: Lex Holm MD 10/02/17 1818 1316 15 Lex Holm MD /nt
--- NOTE | ~2017-09-23 | CNG ---
[facility] [place] [place] [address] CYTO-NONGYN REPORT PROCEDURE Name: SHANIA MCKEON Room #: 431-P ADM IN M.R.#: [id number] Admission: 09/23/17 Date of : 55 Discharge: Report #: [id number] Path Case #: [id number] CYTOPATHOLOGY REPORT COLLECTION DATE: 09/30/2017 RECEIVED DATE: 10/01/2017 SUBMITTING PHYS: Dr. Jaren Doshi OTHER PHYS: Dr. Hue Holm CLINICAL HISTORY: Fever, fatigue SPECIMEN(S) RECEIVED: A.Bronchial wash * * * * * * * * * * * * FINAL DIAGNOSIS: A. Bronchial wash: - No malignant epithelial cells identified. Obscuring acute inflammatory cells and fungal elements identified (see comment). COMMENT: A properly controlled special stain is performed on a ThinPrep slide. GMS (ThinPrep specimen A) - numerous fungal elements identified. The fungal elements are predominantly yeast and pseudohyphae. A true hyphal structure cannot be entirely excluded. Correlation with clinical history and additional laboratory data, to include microbiology specimens, is required. The GMS stain is co-reviewed with Dr. Heather Guzmán. (CLW:[email or web address]; 10/03/2017) PATHOLOGIST: Nancy Gonzalez M.D. REPORT ELECTRONICALLY SIGNED BY: Nancy Gonzalez M.D. DATE/TIME: 10/03/2017 20:58 * * * * * * * * * * * * GROSS PATHOLOGY: A. Bronchial wash: The specimen is submitted unfixed, labeled "Shania Mckeon". Received by the Cytology Department is 13 mL of cloudy colorless fluid. One ThinPrep slide was prepared. (mm 10.01.2017) RECREATIONAL LEADER(S): LIBIA Cottrell(ASCP) INITIAL CPT CODE(S): A; [address], [id number] [address] CYTO-NONGYN REPORT PROCEDURE Name: SHANIA MCKEON Room #: 431-P [facility] IN M.R.#: [id number] Admission: 09/23/17 Date of : 55 Discharge: Report #: [id number] Path Case #: [id number] Professional services performed by [facility] at [address] , [place] [address] [facility] at [address] [place] [address]., [address], [place] [address]. [facility], [address] [place] [address] PHONE: [phone] DIRECTOR: David Limon M.D. * * * END OF REPORT * * *
[~2017-09-23 13:47] MED LIST changes: +MAGNESIUM OXID500 M1 PO; +MORPHINE SULFAT30 M2 PO; +PHENERGAN 25 MG25 M1 PO
[2017-09-23 13:48] VITALS: BP 93/6; BP 93/63
[2017-09-23 14:46] LABS: HEMATOCRIT 29.4 % (37.0-47.0); HEMOGLOBIN 8.8 gm/dL (12.0-15.0); MCH 27.9 pg (26.0-34.0); MCHC 30.1 g/dL (28.0-37.0); MCV 92.6 fL (80.0-100.0); PLATELET COUNT 146 thou/uL (150-400); RBC 3.17 mil/uL (4.20-5.00); RDW 22.7 % (10.5-14.5); WBC 11.5 thou/uL (4.0-11.0)
[2017-09-23 15:00] LABS: CALCIUM 7.9 mg/dL (8.5-10.1); CREATININE 1.2 mg/dL (0.6-1.0); POTASSIUM 3.6 mmol/L (3.5-5.1)
[2017-09-23 15:06] LABS: ALBUMIN 1.7 g/dL (3.4-5.0); TOTAL BILIRUBIN 0.7 mg/dL (<0.1-1.0)
[2017-09-23 15:15] LABS: ABSOLUTE NEUTROPHILS 9.7 thou/uL (1.4-8.2); ANISOCYTOSIS 1+
[2017-09-23 15:24] LABS: URINE BILIRUBIN NEGATIVE (Negative); URINE BLOOD NEGATIVE (Negative); URINE CLARITY CLEAR; URINE COLOR YELLOW; URINE GLUCOSE-RANDOM* NEGATIVE (Negative); URINE KETONES TRACE (Negative); URINE LEUKOCYTES NEGATIVE (Negative); URINE NITRITE NEGATIVE (Negative); URINE PROTEIN (DIPSTICK) NEGATIVE (Negative); URINE UROBILINOGEN 0.2 E.U./dl (0.2-1.0)
[2017-09-23 17:00] VITALS: BP 98/75
[2017-09-23 20:44] VITALS: BP 107/69
[2017-09-24 04:46] VITALS: BP 88/58
[2017-09-24 05:52] LABS: HEMATOCRIT 23.9 % (37.0-47.0); HEMOGLOBIN 7.5 gm/dL (12.0-15.0); MCH 28.7 pg (26.0-34.0); MCHC 31.3 g/dL (28.0-37.0); MCV 91.7 fL (80.0-100.0); RBC 2.6 mil/uL (4.20-5.00); RDW 22.5 % (10.5-14.5); WBC 6.8 thou/uL (4.0-11.0)
[2017-09-24 06:05] LABS: CALCIUM 6.8 mg/dL (8.5-10.1); CREATININE 0.7 mg/dL (0.6-1.0); POTASSIUM 3.5 mmol/L (3.5-5.1)
[2017-09-24 08:30] VITALS: BP 90/57
[2017-09-24 17:00] VITALS: BP 94/52
[2017-09-24 20:17] VITALS: BP 97/64
[2017-09-25 04:59] VITALS: BP 87/53
[2017-09-25 07:04] LABS: HEMATOCRIT 30.3 % (37.0-47.0); HEMOGLOBIN 9.3 gm/dL (12.0-15.0); MCH 28.8 pg (26.0-34.0); MCHC 30.8 g/dL (28.0-37.0); MCV 93.3 fL (80.0-100.0); PLATELET COUNT 118 thou/uL (150-400); RBC 3.25 mil/uL (4.20-5.00); RDW 22.4 % (10.5-14.5); WBC 6.3 thou/uL (4.0-11.0)
[2017-09-25 07:05] LABS: CALCIUM 7.6 mg/dL (8.5-10.1); CREATININE 0.6 mg/dL (0.6-1.0); POTASSIUM 3.2 mmol/L (3.5-5.1)
[2017-09-25 07:35] VITALS: BP 94/66
[2017-09-25 07:59] LABS: ABSOLUTE NEUTROPHILS 5.5 thou/uL (1.4-8.2); METAMYELOCYTES 1 %; MYELOCYTES 1 %
[2017-09-25 08:00] LABS: ANISOCYTOSIS 1+; POIKILOCYTOSIS SLIGHT
[2017-09-25 15:50] VITALS: BP 91/58
[2017-09-25 21:00] VITALS: BP 90/62
[2017-09-26 04:30] VITALS: BP 93/64
[2017-09-26 08:32] LABS: HEMATOCRIT 23.8 % (37.0-47.0); MCH 28.5 pg (26.0-34.0); MCHC 30.4 g/dL (28.0-37.0); MCV 93.6 fL (80.0-100.0); RBC 2.55 mil/uL (4.20-5.00); RDW 22.8 % (10.5-14.5); WBC 6.3 thou/uL (4.0-11.0)
[2017-09-26 08:39] LABS: HEMOGLOBIN 7.3 gm/dL (12.0-15.0)
[2017-09-26 08:46] LABS: CALCIUM 6.8 mg/dL (8.5-10.1); CREATININE 0.5 mg/dL (0.6-1.0); POTASSIUM 3.1 mmol/L (3.5-5.1)
[2017-09-26 08:57] VITALS: BP 90/60
[2017-09-26 16:00] VITALS: BP 87/57
[2017-09-26 20:00] VITALS: BP 86/58
[2017-09-27 04:00] VITALS: BP 105/68
[2017-09-27 06:47] LABS: HEMATOCRIT 24.3 % (37.0-47.0); HEMOGLOBIN 7.5 gm/dL (12.0-15.0); MCH 28.3 pg (26.0-34.0); MCHC 30.8 g/dL (28.0-37.0); RBC 2.64 mil/uL (4.20-5.00); RDW 22.4 % (10.5-14.5); WBC 8.2 thou/uL (4.0-11.0)
[2017-09-27 07:07] LABS: CALCIUM 6.7 mg/dL (8.5-10.1); CREATININE 0.4 mg/dL (0.6-1.0); POTASSIUM 3.1 mmol/L (3.5-5.1)
[2017-09-27 08:05] VITALS: BP 93/64
[2017-09-27 15:21] LABS: HCO3 25.2 mmol/L (22.0-26.0); PCO2 38.7 mmHg (35.0-45.0); PO2 66.5 mmHg (80.0-100.0); pH 7.432 (7.360-7.450); sO2 93.8 % (92.0-98.0)
[2017-09-27 15:40] VITALS: BP 91/63
[2017-09-27 19:27] VITALS: BP 90/61
[2017-09-28 03:11] VITALS: BP 110/76
[2017-09-28 05:23] LABS: HEMATOCRIT 22.8 % (37.0-47.0); HEMOGLOBIN 7.2 gm/dL (12.0-15.0); MCH 28.7 pg (26.0-34.0); MCHC 31.6 g/dL (28.0-37.0); MCV 90.7 fL (80.0-100.0); RBC 2.52 mil/uL (4.20-5.00); RDW 23.1 % (10.5-14.5); WBC 8.2 thou/uL (4.0-11.0)
[2017-09-28 05:36] LABS: CALCIUM 6.5 mg/dL (8.5-10.1); CREATININE 0.5 mg/dL (0.6-1.0)
[2017-09-28 07:30] VITALS: BP 92/60
[2017-09-28 16:20] VITALS: BP 90/55
[2017-09-28 20:00] VITALS: BP 96/66
[2017-09-29 04:00] VITALS: BP 88/54
[2017-09-29 08:00] VITALS: BP 87/54
[2017-09-29 16:00] VITALS: BP 87/48
[2017-09-29 19:26] VITALS: BP 53/86
[2017-09-30 05:22] LABS: HEMATOCRIT 23.1 % (37.0-47.0); HEMOGLOBIN 7.2 gm/dL (12.0-15.0); MCH 28.3 pg (26.0-34.0); MCHC 31.1 g/dL (28.0-37.0); MCV 90.7 fL (80.0-100.0); PLATELET COUNT 132 thou/uL (150-400); RBC 2.55 mil/uL (4.20-5.00); RDW 22.5 % (10.5-14.5); WBC 12.8 thou/uL (4.0-11.0)
[2017-09-30 05:31] LABS: CALCIUM 6.3 mg/dL (8.5-10.1); CREATININE 0.5 mg/dL (0.6-1.0)
[2017-09-30 05:38] LABS: POTASSIUM 2.7 mmol/L (3.5-5.1)
[2017-09-30 06:21] VITALS: BP 86/56
[2017-09-30 06:50] LABS: ABSOLUTE NEUTROPHILS 11.9 thou/uL (1.4-8.2); ANISOCYTOSIS 2+
[2017-09-30 07:30] VITALS: BP 89/53
[2017-09-30 14:06] VITALS: BP 99/68
[2017-09-30 20:12] VITALS: BP 83/43
[2017-10-01 02:53] VITALS: BP 88/53
[2017-10-01 08:00] VITALS: BP 80/48
[2017-10-01 10:06] LABS: BE(vivo) -4.7 mmol/L (-2 to +3); HCO3 19.7 mmol/L (22.0-26.0); PCO2 33.3 mmHg (35.0-45.0); pH 7.389 (7.360-7.450)
[2017-10-01 10:07] LABS: PO2 50.7 mmHg (80.0-100.0)
[2017-10-01 12:23] LABS: CALCIUM 6.3 mg/dL (8.5-10.1); CREATININE 0.8 mg/dL (0.6-1.0)
[2017-10-01 12:26] LABS: POTASSIUM 2.8 mmol/L (3.5-5.1)
[2017-10-01 15:55] VITALS: BP 89/55
[2017-10-01 20:00] VITALS: BP 85/43
[2017-10-02 00:06] LABS: ADENOVIRUS Negative (Negative); INFLUENZA A Positive (Negative); INFLUENZA B Negative (Negative); METAPNEUMOVIRUS Negative (Negative); PARAINFLUENZA 1 Negative (Negative); PARAINFLUENZA 2 Negative (Negative); PARAINFLUENZA 3 Negative (Negative); RHINOVIRUS Negative (Negative); RSV A Negative (Negative); RSV B Negative (Negative)
[2017-10-02 05:13] VITALS: BP 91/63
[2017-10-02 05:46] LABS: HEMATOCRIT 22.7 % (37.0-47.0); MCHC 30.9 g/dL (28.0-37.0); MCV 90.7 fL (80.0-100.0); RBC 2.5 mil/uL (4.20-5.00); RDW 22.4 % (10.5-14.5); WBC 14.6 thou/uL (4.0-11.0)
[2017-10-02 05:56] LABS: CALCIUM 6.2 mg/dL (8.5-10.1); CREATININE 0.7 mg/dL (0.6-1.0); POTASSIUM 3.4 mmol/L (3.5-5.1)
[2017-10-02 08:06] VITALS: BP 88/61
[2017-10-02 14:24] LABS: MAGNESIUM 2.2 mg/dL (1.8-2.4); POTASSIUM 3.5 mmol/L (3.5-5.1)
[2017-10-02 15:30] VITALS: BP 111/69
[2017-10-02 22:22] VITALS: BP 96/66
[2017-10-03 04:54] LABS: CALCIUM 6.7 mg/dL (8.5-10.1); CREATININE 0.7 mg/dL (0.6-1.0); MAGNESIUM 1.9 mg/dL (1.8-2.4); POTASSIUM 3.6 mmol/L (3.5-5.1)
[2017-10-03 05:30] LABS: HEMATOCRIT 22.6 % (37.0-47.0); MCH 28.2 pg (26.0-34.0); MCHC 30.8 g/dL (28.0-37.0); MCV 91.3 fL (80.0-100.0); RBC 2.47 mil/uL (4.20-5.00); RDW 22.4 % (10.5-14.5); WBC 14.5 thou/uL (4.0-11.0)
[2017-10-03 07:30] LABS: HCO3 18.9 mmol/L (22.0-26.0); PCO2 35.1 mmHg (35.0-45.0); PO2 58.9 mmHg (80.0-100.0); sO2 89.6 % (92.0-98.0)
[2017-10-03 08:20] VITALS: BP 102/70
[2017-10-03 16:45] VITALS: BP 88/59
[2017-10-04 04:04] LABS: MCH 28.6 pg (26.0-34.0); MCHC 31.8 g/dL (28.0-37.0); RBC 2.19 mil/uL (4.20-5.00); RDW 22.1 % (10.5-14.5)
[2017-10-04 04:24] LABS: CALCIUM 6.6 mg/dL (8.5-10.1); CREATININE 0.6 mg/dL (0.6-1.0); MAGNESIUM 1.6 mg/dL (1.8-2.4); POTASSIUM 3.5 mmol/L (3.5-5.1)
[2017-10-04 04:32] VITALS: BP 94/61
[2017-10-04 04:34] LABS: HEMOGLOBIN 6.3 gm/dL (12.0-15.0)
[2017-10-04 04:35] LABS: HEMATOCRIT 19.7 % (37.0-47.0)
[2017-10-04 07:20] VITALS: BP 81/48
[2017-10-04 08:56] LABS: HCO3 22.5 mmol/L (22.0-26.0); PCO2 36.8 mmHg (35.0-45.0); PO2 56.6 mmHg (80.0-100.0); pH 7.404 (7.360-7.450); sO2 89.8 % (92.0-98.0)
[2017-10-04 10:04] VITALS: BP 88/62; BP 93/54
[2017-10-04 11:14] LABS: HEMATOCRIT 19.7 % (37.0-47.0); HEMOGLOBIN 6.2 gm/dL (12.0-15.0)
[2017-10-04 15:40] VITALS: BP 92/60
== END 2017-10-05 12:40 | DRG 853 ==
LOC: ER 13:47 → EROBS 15:38 → 4E 19:08
PROVIDERS: Emergency Medicine; Family Medicine; Hospitalist; Internal Medicine; Internal Medicine Pulmonary Disease; Nurse Practitioner; Nurse Practitioner Acute Care
PROC: 0B9F8ZZ Drainage of Right Lower Lung Lobe, Via Natural or Artificial Opening Endoscopic (ICD-10-PCS; principal; 2017-09-30)
PROC: 30233N1 Transfusion of Nonautologous Red Blood Cells into Peripheral Vein, Percutaneous Approach (ICD-10-PCS; 2017-10-04)
DX: A41.9 Sepsis, unspecified organism (principal); E43 Unspecified severe protein-calorie malnutrition; J96.21 Acute and chronic respiratory failure with hypoxia; J11.00 Influenza due to unidentified influenza virus with unspecified type of pneumonia; L97.929 Non-pressure chronic ulcer of unspecified part of left lower leg with unspecified severity; L97.919 Non-pressure chronic ulcer of unspecified part of right lower leg with unspecified severity; L89.150 Pressure ulcer of sacral region, unstageable; I48.0 Paroxysmal atrial fibrillation; R41.0 Disorientation, unspecified; Z96.641 Presence of right artificial hip joint; D64.9 Anemia, unspecified; E87.6 Hypokalemia; Z66 Do not resuscitate; Z51.5 Encounter for palliative care; Z99.81 Dependence on supplemental oxygen; Z87.01 Personal history of pneumonia (recurrent); Z79.899 Other long term (current) drug therapy; Z86.711 Personal history of pulmonary embolism; Z85.038 Personal history of other malignant neoplasm of large intestine; Z85.05 Personal history of malignant neoplasm of liver; Z90.49 Acquired absence of other specified parts of digestive tract; Z68.23 Body mass index [BMI] 23.0-23.9, adult
CPT/HCPCS: 10783